=== PATIENT | female | born 1955 | race Caucasian/White ===

== ENCOUNTER 2020-04-12 06:51 | Day surgery (SDC) | payer BC ==
--- NOTE | 2020-04-10 11:23 | PCM.SN.2 ---
- Free Text/Narrative Note: Left selective femoral nerve block at the adductor canal for post-procedure pain control under US guidance requested by Dr. Carter. Time Out: 1045 Start: 1045 End: 105 Chart reviewed. Consent signed. Questions answered. Appropriate monitors applied. Time out performed. Left mid-shaft femur identified with ultrasound, scanning medially of femur, the femoral artery in the adductor canal visualized, and the femoral nerve located laterally to the artery. The skin was prepped lateral to the ultrasound probe with chlorahexadine times two. The 21ga 4 insulated block needle was inserted under direct ultrasound guidance into the adductor canal. 25mL of 0.5% ropivacaine with 1:200,000 epinephrine was injected circumferentially around the nerve with intermittent negative aspiration noted. Patient tolerated the procedure well. Sterile technique noted along with sterile gloves, mask, and sterile probe cover. See picture on progress note and vital signs on nurses notes. Block completed in PACU. Sherry Xie CRNA
--- NOTE | 2020-04-12 06:40 | PCM.PREANE ---
Preanesthetic Assessment - Procedure Proposed Procedure: Left Total Knee Arthroplasty - Anesthesia/Transfusion/Family Hx Anesthesia History: Prior Anesthesia Reaction Type of Anesthesia Reaction: Excessive Nausea/Vomiting Family History of Anesthesia Reaction: No Transfusion History: No Prior Transfusion(s) Intubation History: Unknown - Review of Systems General: No Symptoms Pulmonary: No Symptoms (ETOH:Rarely) Cardiovascular: No Symptoms (Elevated cholesterol) Gastrointestinal: No Symptoms (/GERD) Neurological: No Symptoms (Vertigo, motion sickness), Headache (history of migraines) Other: Reports: None, Easy Bleeding - Physical Assessment NPO Status Date: 04/11/20 NPO Status Time: 21:00 Vital Signs: HR:78 Sat:97% Temp:97.1 B/P:129/96 Resp:16 Height: 1.65 m Weight: 78 kg ASA Class: 2 Mental Status: Alert & Oriented x3 Airway Class: Mallampati = 2 Dentition: Reports: Normal Dentition (over bite noted), Caries Thyro-Mental Finger Breadths: 3 Mouth Opening Finger Breadths: 3 ROM/Head Extension: Full Lungs: Clear to Auscultation, Normal Respiratory Effort Cardiovascular: Regular Rate, Regular Rhythm, No Murmurs - Lab Values: All labs reviewed and noted and within acceptable ranges to proceed with scheduled procedure. - Imaging/EKG Impressions: CXR: negative EKG: SR rate=96, probable Left atrial enlargement, Probable right ventricular hypertrophy - Allergies Allergies/Adverse Reactions: Allergies Allergy/AdvReac Type Severity Reaction Status Date / Time atorvastatin Allergy Body Aches Verified 04/11/20 14:13 - Anesthesia Plan Pre-Op Medication Ordered: Other (P.O. (lyrica, tylenol, oxycodone)@ 0726 Scopalamine patch@ 0726 right ear) - Acknowledgements Anesthesia Type Planned: Spinal (Left Adductor canal block under US guidance for post operative pain control requested by Dr. Carter.) Pt an Appropriate Candidate for the Planned Anesthesia: Yes Alternatives and Risks of Anesthesia Discussed w Pt/Guardian: Yes Pt/Guardian Understands and Agrees with Anesthesia Plan: Yes PreAnesthesia Questionnaire - Infectious Disease History Infectious Disease History: Reports: None - SUBSTANCE USE Tobacco Use Status *Q: Never Tobacco User Recreational Drug Use History: No - HOME MEDS Home Medications: Home Meds Amoxicillin 2,000 mg PO ASDIRECTED PRN 04/11/20 [History] Cholecalciferol (Vitamin D3) [Vitamin D3] 5,000 unit PO DAILY 04/11/20 [History] Rosuvastatin [Crestor] 5 mg PO DAILY 04/11/20 [History] diphenhydrAMINE HCL [Benadryl] 25 mg PO BEDTIME PRN 04/11/20 [History] estradioL [Estrace 0.01% Vaginal Crm] 1 dose VAG SUTH 04/11/20 [History] Aspirin [Aspirin EC] 325 mg PO BID #84 tab 04/12/20 [Rx] Cyclobenzaprine [Flexeril] 10 mg PO BID PRN #20 tab 04/12/20 [Rx] oxyCODONE 5 - 10 mg PO Q4H PRN #40 tab 04/12/20 [Rx] - CURRENT (IN HOUSE) MEDS Current Meds: Current Medications Acetaminophen (Tylenol) 975 mg PO ONETIME SHARON Stop: 04/12/20 13:00 Morphine Sulfate 8 mg/Epinephrine HCl 0.3 mg/Cefuroxime Sodium 750 mg/Ketorolac Tromethamine 30 mg/Sodium Chloride 7.9 ml 0 mg .XX ASDIRECTED PRN PRN Reason: Pain Stop: 04/12/20 15:00 Lactated Ringer's (Ringers, Lactated) 1,000 mls @ 125 mls/hr IV ASDIRECTED SHARON Stop: 04/12/20 23:00 Lidocaine/Sodium Bicarbonate (Buffered Lidocaine 1% In Ns 8.4%) 0.25 ml IDERM ONETIME PRN PRN Reason: Prior to IV Start Stop: 04/12/20 18:00 Oxycodone HCl (Oxycontin) 10 mg PO ONETIME SHARON Stop: 04/12/20 13:00 Pregabalin (Lyrica) 50 mg PO ONETIME SHARON Stop: 04/12/20 13:00 Scopolamine (Transderm-Scop) 1.5 mg TOP ONETIME SHARON Stop: 04/12/20 12:00 Sodium Chloride (Saline Flush) 10 ml FLUSH ASDIRECTED PRN PRN Reason: Keep Vein Open Stop: 04/12/20 18:00
[~2020-04-12 06:51] MED LIST: Acetaminophen 325 MG Tab PO SCH; Lactated Ringers 1,000 ML IV SCH; Lidocaine 1%/Sod Bicarbonate in NS 8.4% 1 ML Syringe IDERM PRN; Pregabalin 25 MG Cap PO SCH; Scopolamine 1.5 MG Transdermal Patch TOP SCH; Sodium Chloride 0.9% 10 ML Syringe FLUSH PRN; oxyCODONE ER 10 MG TAB.ER PO SCH
[2020-04-12] MEDS ORDERED: EPINEPHrine 1 MG/ML SDV ONE (06:52)
[2020-04-12] MEDS ORDERED: Ropivacaine 0.5% 5 MG/ML 30 ML SDV ONE (06:52)
[2020-04-12] MEDS ORDERED: Dexamethasone 4 MG/ML 5 ML MDV ONE (07:16)
[2020-04-12] MEDS ORDERED: Ondansetron 4 MG/2 ML SDV ONE (07:16)
[2020-04-12] MEDS ORDERED: fentaNYL 100 MCG/2 ML SDV ONE (07:16)
[2020-04-12] MEDS ORDERED: Midazolam 1 MG/ML 2 ML SDV ONE (07:16)
[2020-04-12] MEDS ORDERED: diphenhydrAMINE 50 MG/ML SDV ONE (07:16)
[2020-04-12] MEDS ORDERED: Lactated Ringers 2,000 ML ONE (07:16)
[2020-04-12] MEDS ORDERED: ceFAZolin 1 GM Vial ONE (07:16)
[2020-04-12] MEDS ORDERED: Lidocaine 1% 4 ML ONE (07:16)
[2020-04-12] MEDS ORDERED: Propofol 200 MG/20 ML SDV ONE (07:17)
[2020-04-12] MEDS ORDERED: Ketamine 500 mg/10 ML MDV ONE (07:17)
[2020-04-12] MEDS ORDERED: Haloperidol Lactate 5 MG/ML SDV IVPUSH ONE (09:06)
[2020-04-12] MEDS ORDERED: HYDROmorphone 0.5 MG/0.5 ML Syringe IVPUSH PRN (09:06)
[2020-04-12] MEDS ORDERED: fentaNYL 100 MCG/2 ML SDV IVPUSH PRN (09:06)
[2020-04-12] MEDS ORDERED: Metoclopramide 10 MG/2 ML SDV IV PRN (09:06)
[2020-04-12] MEDS ORDERED: Ondansetron 4 MG/2 ML SDV IVPUSH PRN (09:06)
[2020-04-12] MEDS ORDERED: ePHEDrine 50 MG/ML SDV IVPUSH PRN (09:06)
[2020-04-12] MEDS ORDERED: HYDROmorphone 0.5 MG/0.5 ML Syringe ONE (09:31)
[2020-04-12] MEDS: Vancomycin 1 GM SDV ONE ×2 (09:44→10:15)
[2020-04-12] MEDS: Morphine 8 MG, EPINEPHrine 0.3 MG, Cefuroxime 750 MG, Ketorolac 30 MG, Sodium Chloride ... PRN ×10 (09:44→10:08)
--- NOTE | 2020-04-12 10:57 | PCM.POSTAN ---
POST ANESTHESIA ASSESSMENT - MENTAL STATUS Mental Status: Alert - VITAL SIGNS Vital Signs: Last Vital Signs Temp 36.7 C 04/12/20 10:45 Pulse 95 04/12/20 10:45 Resp 14 04/12/20 10:45 BP 100/57 L 04/12/20 10:45 Pulse Ox 90 L 04/12/20 10:45 - RESPIRATORY Respiratory Status: Respiratory Rate WNL, Airway Patent, O2 Saturation Stable, Supplemental Oxygen - CARDIOVASCULAR CV Status: Pulse Rate WNL, Blood Pressure Stable - GASTROINTESTINAL GI Status: No Symptoms - POST OP HYDRATION Hydration Status: Adequate & Stable
--- NOTE | 2020-04-12 11:42 | CR ---
Left knee: AP and lateral views of the left knee were obtained. Comparison: Previous CT left knee study of 03/29/20. Knee prosthesis is noted. Components are aligned. Underlying bony structures are intact. Patellar prosthesis is also seen. Air is noted from the surgical procedure. No acute osseous finding is seen. Impression: 1. Satisfactory postop radiographic appearance of recently placed left knee prosthesis. Diagnostic code #2
--- NOTE | 2020-04-12 13:27 | PCM48HPAN ---
Post Anesthesia Note - EVALUATION WITHIN 48HRS OF ANESTHETIC Vital Signs in Normal Range: Yes Patient Participated in Evaluation: Yes Respiratory Function Stable: Yes Airway Patent: Yes Cardiovascular Function Stable: Yes Hydration Status Stable: Yes Pain Control Satisfactory: Yes Nausea and Vomiting Control Satisfactory: Yes Mental Status Recovered: Yes Vital Signs: Last Vital Signs Temp 98 C H 04/12/20 13:00 Pulse 91 04/12/20 13:00 Resp 15 04/12/20 13:00 BP 107/64 04/12/20 13:00 Pulse Ox 96 04/12/20 13:00
[2020-04-12] MEDS ORDERED: oxyCODONE 5 MG Tab PO PRN (13:39)
[2020-04-12] MEDS ORDERED: Cyclobenzaprine 10 MG Tab PO ONE (13:39)
[2020-04-12] MEDS ORDERED: Albuterol 0.083% 2.5 MG/3 ML Neb Soln NEB ONE (13:54)
--- NOTE | 2020-04-17 17:59 | PCM.OPNOTE ---
- General Post-Op/Procedure Note Date of Surgery/Procedure: 04/12/20 Operative Procedure(s): left total knee arthroplaty with mike robotics Pre Op Diagnosis: left knee osteoarthrosis Post-Op Diagnosis: Same Anesthesia Technique: Local, MAC, Spinal Primary Surgeon: Sha Carter Anesthesia Provider: Denisha Xie Power Line Installer: Katharine Santos Power Line Installer: Crista Ott EBL in mLs: 100 Complications: None Condition: Good Free Text/Narrative:: 4 femur 3 tibia 9mm 29x9
--- NOTE | 2020-05-04 13:46 | OR ---
DATE OF OPERATION: 04/12/2020 SURGEON: Sha Carter MD OPERATION PERFORMED: Left total knee arthroplasty with Silverio robotic. PREOPERATIVE DIAGNOSIS: Left knee osteoarthrosis. POSTOPERATIVE DIAGNOSIS: Left knee osteoarthrosis. ANESTHESIA: Local MAC with spinal. ANESTHESIA PROVIDER: Denisha Xie. ASSISTANTS: Katharine Santos PA-C, and Crista Ott LPN. ESTIMATED BLOOD LOSS: 100 mL. COMPLICATIONS: None. CONDITION: Stable. IMPLANT: 1. Janine size 4 press-fit CR femur. 2. Avoca size 3 press-fit tibial baseplate. 3. Avoca size 3, 9 mm CS polyethylene insert. 4. Janine size 29 x 9 mm press-fit asymmetric patella. DESCRIPTION OF PROCEDURE: Patient was identified in the preoperative holding area. Proper site was marked and identified by surgeon. The patient was taken back to the operating theater where after adequate anesthesia, the patient's left lower extremity had a nonsterile tourniquet applied and then sterilely prepped and draped in the usual sterile fashion. OR time-out was performed. Patient received 2 g of IV Ancef. Leg leon then was applied to the left lower extremity. Left lower extremity was exsanguinated. Tourniquet was insufflated to 250 mmHg. A standard anterior incision was made and a medial parapatellar arthrotomy was created. Deep fibers of the MCL were raised and anterior fat pad was resected. Attention was turned to the patella. Patella measured 21, resected to a 13 for 29 x 9 mm patella. Drill holes were then drilled and found to be adequate. At this time, two 4.0 Schanz pins were placed intra-incisionally in the femur for the Avoca Silverio robotic array on the femur and then 2 more were placed on the tibia 3 fingerbreadths below the tibial tubercle. Avoca Silverio robotic arrays as well as the checkpoints on the femur and the tibia were placed. Hip center of the rotation was identified. Medial and lateral malleoli were marked. At this time, 40 points were then obtained from both the femur and the tibia for the Janine Silverio robotic plan. The patient's knee was brought into full extension. Varus and valgus stresses were applied as well as 90 degrees of flexion with a curved osteotome. At this time, the Avoca Silverio robotic plan was made for the patient with the gaps of 19, both in flexion and extension. Eight19 robotic arm was brought in. A straight saw blade was then used for resection of the tibia. The anterior femoral cut, anterior chamfer, and the posterior femoral cut. All bony fragments were removed. Saw blade was then switched, and again, the distal femoral cut as well as the posterior chamfer cut was then completed. All cuts were found to be adequate. All bony fragments were removed. The medial and lateral menisci were removed as well as any posterior osteophytes. The size 3 base plate was then placed. A size 4 trial femur was placed. The patient's knee was brought into full extension. The patient had a stable knee to varus and valgus stresses, had full extension and full flexion with no signs of instability or lift-off at this time. The femoral drill holes were drilled. The tibia stamped and drilled in proper rotation. All trial parts were removed. The size 3 tibia was then impacted into place. The size 4 press-fit femur was impacted in place, 9 mm CS polyethylene insert was impacted in place. The patient's knee was brought to full extension and a 29 x 9 mm press-fit patella was pressed into place. The tourniquet was deflated. Bleeders were cauterized. Periarticular injection was then completed. 1 L of pulse lavage irrigation with Ancef was irrigated through the knee along with 400 mL of Irrisept irrigation. Topical tranexamic acid and vancomycin powder were applied. Eight19 robotic arrays and pins were removed at this time. A #2 barbed suture was used for closure of the medial parapatellar arthrotomy. 2-0 Vicryl and Stratafix were used for subcutaneous closure, and Prineo was used for skin closure. The patient had a sterile soft dressing applied and an Donato wrap and was sent to PACU in stable condition. MMODAL /[id number]
== END 2020-04-12 15:58 | disposition home or self-care (01) ==
LOC: JD.SDS 06:51
PROVIDERS: ATTEND Orthopaedic Surgery
DX: M17.12 Unilateral primary osteoarthritis, left knee (principal); G89.18 Other acute postprocedural pain; E78.5 Hyperlipidemia, unspecified; Z88.8 Allergy status to other drugs, medicaments and biological substances; Z79.899 Other long term (current) drug therapy; Z98.890 Other specified postprocedural states
CPT/HCPCS: 27447; 73560; 94640; 97110; 97116; 97161; 97165; A9270; C1713; C1776; J0171; J0690; J0697; J1100; J1170; J1200; J1885; J2250; J2270; J2370; J2405; J2704; J2795; J3010; J3370; J7120; 01402; 64450

== ENCOUNTER 2021-02-21 10:09 | Emergency (ER) | payer BC | END 2021-02-21 13:25 | disposition home or self-care (01) | LOC: JD.ED 10:09 | DX: G45.9 Transient cerebral ischemic attack, unspecified (principal); E78.00 Pure hypercholesterolemia, unspecified; Z88.8 Allergy status to other drugs, medicaments and biological substances; Z79.899 Other long term (current) drug therapy; Z20.822 Contact with and (suspected) exposure to COVID-19 | CPT/HCPCS: 36415; 70450; 70450-26; 70551; 70551-26; 80053; 85025; 85610; 93005; 99284-25; U0002 ==

== ENCOUNTER 2021-06-07 12:45 | Day surgery (SDC) | payer BC ==
[~2021-06-07 12:45] MED LIST changes: -Acetaminophen 325 MG Tab PO SCH; +Bupivacaine 0.25% 10 ML SDV ONE; +Bupivacaine 0.5% 10 ML SDV ONE; +Dexamethasone 4 MG/ML 5 ML MDV ONE; +EPINEPHrine 1 MG/ML 30 ML MDV IRR SCH; +HYDROmorphone 0.5 MG/0.5 ML Syringe IVPUSH PRN; +Lidocaine 1% 5 ML VIAL ONE; +Midazolam 1 MG/ML 2 ML SDV ONE; +Ondansetron 4 MG/2 ML SDV IVPUSH PRN; +Ondansetron 4 MG/2 ML SDV ONE; -Pregabalin 25 MG Cap PO SCH; +Propofol 200 MG/20 ML SDV ONE; -Scopolamine 1.5 MG Transdermal Patch TOP SCH; +Sodium Chloride 0.9% 10 ML Syringe FLUSH SCH; +ceFAZolin 1 GM Vial ONE; +fentaNYL 100 MCG/2 ML SDV IVPUSH PRN; +fentaNYL 100 MCG/2 ML SDV ONE; -oxyCODONE ER 10 MG TAB.ER PO SCH
[2021-06-07] MEDS ORDERED: Acetaminophen/HYDROcodone 325-5 MG Tab PO ONE (15:00)
== END 2021-06-07 14:30 | disposition home or self-care (01) ==
LOC: JD.SDS 12:45
PROVIDERS: ATTEND Orthopaedic Surgery
DX: T84.82XA Fibrosis due to internal orthopedic prosthetic devices, implants and grafts, initial encounter (principal); E78.5 Hyperlipidemia, unspecified; Z86.73 Personal history of transient ischemic attack (TIA), and cerebral infarction without residual deficits; Z88.8 Allergy status to other drugs, medicaments and biological substances; Z79.899 Other long term (current) drug therapy; Z79.82 Long term (current) use of aspirin; Z98.890 Other specified postprocedural states
CPT/HCPCS: 29875; A9270; J0171; J0690; J1100; J2250; J2370; J2405; J2704; J3010; J3490; J7120; 01400

== ENCOUNTER 2021-07-04 11:37 | Emergency (ER) | payer BC ==
[2021-07-04] MEDS ORDERED: fentaNYL 100 MCG/2 ML SDV IVPUSH ONE ×2 (11:50→14:18)
[2021-07-04] MEDS ORDERED: Lactated Ringers 1,000 ML IV SCH (12:00)
[2021-07-04] MEDS ORDERED: Iopamidol 612 MG/ML 100 ML Bottle IVPUSH ONE (12:12)
[2021-07-04] MEDS: Sodium Chloride 0.9% 10 ML Syringe FLUSH PRN ×2 (12:35→13:14)
[2021-07-04] MEDS ORDERED: Acetaminophen/HYDROcodone 325-5 MG Tab PO ONE (17:03)
== END 2021-07-04 17:45 | disposition home or self-care (01) ==
LOC: JD.ED 11:37
DX: R10.9 Unspecified abdominal pain (principal); I10 Essential (primary) hypertension; Z88.8 Allergy status to other drugs, medicaments and biological substances; Z86.73 Personal history of transient ischemic attack (TIA), and cerebral infarction without residual deficits
CPT/HCPCS: 36415; 74177; 76705; 80053; 81001; 81003; 83690; 84484; 85025; 87086; 93005; 96374; 99284; A9270; J3010; J3490; J7120; Q9967

== ENCOUNTER 2021-08-16 07:22 | Day surgery (SDC) | payer BC ==
[~2021-08-16 07:22] MED LIST changes: -Bupivacaine 0.25% 10 ML SDV ONE; -Bupivacaine 0.5% 10 ML SDV ONE; -Dexamethasone 4 MG/ML 5 ML MDV ONE; -EPINEPHrine 1 MG/ML 30 ML MDV IRR SCH; -HYDROmorphone 0.5 MG/0.5 ML Syringe IVPUSH PRN; -Lidocaine 1% 5 ML VIAL ONE; -Midazolam 1 MG/ML 2 ML SDV ONE; -Ondansetron 4 MG/2 ML SDV IVPUSH PRN; -Ondansetron 4 MG/2 ML SDV ONE; -Propofol 200 MG/20 ML SDV ONE; -ceFAZolin 1 GM Vial ONE; -fentaNYL 100 MCG/2 ML SDV IVPUSH PRN; -fentaNYL 100 MCG/2 ML SDV ONE
[2021-08-16] MEDS ORDERED: Propofol 200 MG/20 ML SDV ONE (07:51)
[2021-08-16] MEDS ORDERED: Lidocaine 1% 4 ML ONE (07:51)
[2021-08-16] MEDS ORDERED: fentaNYL 100 MCG/2 ML SDV ONE (07:53)
[2021-08-16] MEDS ORDERED: Midazolam 1 MG/ML 2 ML SDV ONE (07:53)
== END 2021-08-16 10:40 | disposition home or self-care (01) ==
LOC: JD.SDS 07:22
PROVIDERS: ATTEND Surgery
DX: Z12.11 Encounter for screening for malignant neoplasm of colon (principal); K57.30 Diverticulosis of large intestine without perforation or abscess without bleeding; K29.50 Unspecified chronic gastritis without bleeding; K44.9 Diaphragmatic hernia without obstruction or gangrene; K22.2 Esophageal obstruction; E78.00 Pure hypercholesterolemia, unspecified; I10 Essential (primary) hypertension; K21.9 Gastro-esophageal reflux disease without esophagitis; K64.4 Residual hemorrhoidal skin tags; K64.8 Other hemorrhoids; E78.5 Hyperlipidemia, unspecified; Z88.8 Allergy status to other drugs, medicaments and biological substances; Z79.899 Other long term (current) drug therapy; Z98.890 Other specified postprocedural states; G43.909 Migraine, unspecified, not intractable, without status migrainosus; Z86.73 Personal history of transient ischemic attack (TIA), and cerebral infarction without residual deficits
CPT/HCPCS: 43239; 45378; J2250; J2704; J3010; J7120; 00813

== ENCOUNTER 2021-12-05 15:48 | Emergency (ER) | payer BC ==
[2021-12-05] MEDS ORDERED: Sodium Chloride 0.9% 10 ML Syringe FLUSH PRN (16:27)
[2021-12-05] MEDS ORDERED: Sodium Chloride 0.9% 1,000 ML IV ONE (16:44)
[2021-12-05] MEDS ORDERED: Famotidine 20 MG/2 ML SDV IVPUSH PRN (17:59)
[2021-12-05] MEDS ORDERED: methylPREDNISolone Sodium Succinate 125 MG/2 ML SDV IVPUSH PRN (17:59)
[2021-12-05] MEDS ORDERED: EPINEPHrine 1 MG/ML SDV IM PRN (17:59)
[2021-12-05] MEDS ORDERED: diphenhydrAMINE 50 MG/ML SDV IVPUSH PRN (17:59)
[2021-12-05] MEDS ORDERED: Sodium Chloride 0.9% 10 ML Syringe FLUSH SCH (18:00)
== END 2021-12-05 20:25 | disposition home or self-care (01) ==
LOC: JD.ED 15:48
DX: U07.1 COVID-19 (principal); E78.00 Pure hypercholesterolemia, unspecified; I10 Essential (primary) hypertension; Z88.6 Allergy status to analgesic agent; Z79.899 Other long term (current) drug therapy
CPT/HCPCS: 36415; 71045; 80053; 81001; 83735; 85025; 85379; 86140; 87086; 93005; 96360; 96372; 99284; J3490; J7030; M0222; Q0222

== ENCOUNTER 2021-12-07 10:43 | Emergency (ER) | payer BC | END 2021-12-07 12:00 | LOC: JD.ED 10:43 | DX: H49.20 Sixth [abducent] nerve palsy, unspecified eye (principal); E78.00 Pure hypercholesterolemia, unspecified; I10 Essential (primary) hypertension; K21.9 Gastro-esophageal reflux disease without esophagitis; Z86.73 Personal history of transient ischemic attack (TIA), and cerebral infarction without residual deficits; Z79.899 Other long term (current) drug therapy; Z88.8 Allergy status to other drugs, medicaments and biological substances | CPT/HCPCS: 99284 ==

== ENCOUNTER 2022-02-20 09:08 | Emergency (ER) | payer BC ==
[2022-02-20] MEDS ORDERED: Dextrose 5%-0.9% NaCl 1,000 ML IV SCH (10:00)
[2022-02-20 11:46] LABS: ESTIMATED GFR 29 mL/min (>60)
[2022-02-20] MEDS ORDERED: Furosemide 40 MG/4 ML VIAL IVPUSH ONE (12:06)
[2022-02-20] MEDS ORDERED: Sodium Chloride 0.9% 1,000 ML IV SCH (12:15)
[2022-02-20] MEDS ORDERED: Acetaminophen 325 MG Tab PO ONE (12:50)
[2022-02-20 13:30] LABS: CORONAVIRUS COVID-19 NAA NEGATIVE (NEGATIVE)
== END 2022-02-20 14:35 ==
LOC: JD.ED 09:08
DX: C90.00 Multiple myeloma not having achieved remission (principal); I12.9 Hypertensive chronic kidney disease with stage 1 through stage 4 chronic kidney disease, or unspecified chronic kidney disease; N18.4 Chronic kidney disease, stage 4 (severe); E83.52 Hypercalcemia; D63.1 Anemia in chronic kidney disease; D69.6 Thrombocytopenia, unspecified; E78.00 Pure hypercholesterolemia, unspecified; K21.9 Gastro-esophageal reflux disease without esophagitis; Z79.899 Other long term (current) drug therapy; Z86.73 Personal history of transient ischemic attack (TIA), and cerebral infarction without residual deficits; Z20.822 Contact with and (suspected) exposure to COVID-19
CPT/HCPCS: 0241U; 36415; 71045; 71045-26; 80053; 82330; 83735; 83880; 84443; 85025; 85610; 85652; 85730; 86140; 96361; 96374; 99285-25; A9270-GY; J1940; J7030; J7042